=== PATIENT | male | born 1960 ===

== ENCOUNTER → 2020-08-20 09:27 | Outpatient (BNVA) | payer BC, SELFPAY | PROVIDERS: PCP Nurse Practitioner Family; Referring Provider Hospitalist; Visit Provider Internal Medicine Cardiovascular Disease | DX: I49.1 Atrial premature depolarization (principal); R07.9 Chest pain, unspecified | CPT/HCPCS: 93005 ==

== ENCOUNTER 2021-06-06 07:32 | Outpatient (REF) | payer BC, SELFPAY ==
[2021-06-06 11:05] LABS: Alanine Aminotransferase 705 U/L (0-40); Albumin Level 4.4 g/dL (3.5-5.0); Alkaline Phosphatase 96 U/L (39-117); Anion Gap 12 (12-20); Aspartate Amino Transferase 321 U/L (5-37); Blood Urea Nitrogen 18 mg/dL (9-16); Calcium 9.6 mg/dL (8.4-10.2); Carbon Dioxide 30 mmol/L (22-29); Chloride 103 mmol/L (96-108); Cholesterol 174 mg/dL; Estimated Glomerular Filt Rate > 60; Glucose Fasting 101 mg/dL (60-99); HDL Cholesterol 30 mg/dL; LDL Cholesterol Calculated 119 mg/dl; Potassium 4.5 mmol/L (3.3-5.1); Sodium 140 mmol/L (135-145); Total Protein 7.3 g/dL (6.5-8.0); Triglycerides 128 mg/dL
[2021-06-06 11:13] LABS: Prostate Specific Antigen Scr 1.67 ng/mL (<0.05-4.0); TSH reflex Free T4 1.08 uIU/mL (0.32-4.0)
[2021-06-06 11:26] LABS: Appearance Urine CLEAR; Color Urine YELLOW; Glucose Urine UA NEG (NEG); Leukocyte Esterase Urine NEG (NEG); Nitrite Urine NEG (NEG); Specific Gravity - Urine 1.025 (1.005-1.025); UACC Culture Trigger NO; Urine Blood TRACE (NEG); Urine Ketones NEG (NEG); Urine Protein NEG (NEG-TRACE)
[2021-06-06 12:13] LABS: RBC Urine 0-2 /HPF (0); WBC Urine 0 /HPF (0-4)
== END 2021-06-06 07:33 | disposition home or self-care (01) ==
LOC: HO.10HDL 07:32
PROVIDERS: Visit Provider Nurse Practitioner Family
DX: Z00.00 Encounter for general adult medical examination without abnormal findings (principal); Z12.5 Encounter for screening for malignant neoplasm of prostate
CPT/HCPCS: 36415; 80053; 80061; 81001; 81003; 84153; 84443

== ENCOUNTER 2021-06-20 07:48 | Outpatient (REF) | payer BC, SELFPAY ==
[2021-06-20 09:02] LABS: Urine Cytology See Pathology rpt
[2021-06-20 09:06] LABS: Appearance Urine CLEAR; Color Urine YELLOW; Glucose Urine UA NEG (NEG); Leukocyte Esterase Urine NEG (NEG); Nitrite Urine NEG (NEG); PH 5.5 (5.0-8.0); Specific Gravity - Urine >= 1.030 (1.005-1.025); Urine Blood NEG (NEG); Urine Ketones NEG (NEG); Urine Protein NEG (NEG-TRACE)
[2021-06-20 09:08] LABS: Alanine Aminotransferase 523 U/L (0-40); Albumin Level 4.5 g/dL (3.5-5.0); Alkaline Phosphatase 119 U/L (39-117); Aspartate Amino Transferase 149 U/L (5-37); Bilirubin Direct 0.2 mg/dL (0.0-0.5); Bilirubin Total 0.7 mg/dL (0.0-1.0); Total Protein 7.2 g/dL (6.5-8.0)
[2021-06-20 09:28] LABS: HBc Num1 0.04 S/CO (0.00-0.79); Hepatitis B Core Antibody Nonreactive (Nonreactive); ~HepC Num1 0.13 S/CO (0.00-0.79); ~Hepatitis B Surface Antibody NONREACTIVE (Nonreactive); ~Hepatitis C Antibody Nonreactive (Nonreactive)
[2021-06-20 09:35] LABS: HBsAGNum1 0.28 S/CO (0.00-0.99); Hepatitis B Surface Antigen Negative (Negative)
[2021-06-20 10:07] LABS: RBC Urine 0-2 /HPF (0); WBC Urine 0 /HPF (0-4)
[2021-06-21 07:43] LABS: Hepatitis A Antibody IgM 0.43 Index (0-0.79); ~Hepatitis A Antibody IgM Nonreactive (Nonreactive)
== END 2021-06-20 07:49 | disposition home or self-care (01) ==
LOC: HO.LAB 07:48
PROVIDERS: PCP Nurse Practitioner Family; Visit Provider Nurse Practitioner Family
DX: R31.29 Other microscopic hematuria (principal); R74.8 Abnormal levels of other serum enzymes
CPT/HCPCS: 36415; 80076; 81001; 81003; 86704; 86706; 86709; 86803; 87086; 87340; 88112

== ENCOUNTER 2021-06-25 12:01 | Outpatient (REF) | payer BC, SELFPAY ==
[2021-06-25 14:28] LABS: Alanine Aminotransferase 218 U/L (0-40); Albumin Level 4.6 g/dL (3.5-5.0); Alkaline Phosphatase 94 U/L (39-117); Aspartate Amino Transferase 60 U/L (5-37); Bilirubin Direct 0.3 mg/dL (0.0-0.5); Bilirubin Total 0.8 mg/dL (0.0-1.0); Total Protein 7.5 g/dL (6.5-8.0)
== END 2021-06-25 12:02 | disposition home or self-care (01) ==
LOC: HO.HMGCLDS 12:01
PROVIDERS: Visit Provider Nurse Practitioner Family
DX: R74.8 Abnormal levels of other serum enzymes (principal)
CPT/HCPCS: 36415; 80076

== ENCOUNTER 2021-07-01 08:08 | Outpatient (REF) | payer BC, SELFPAY ==
--- NOTE | ~2021-07-01 | US_ITS ---
EXAMINATION: US ABDOMEN COMPLETE CLINICAL INFORMATION: Abnormal levels of other serum enzymes. COMPARISON: None TECHNIQUE: Real-time imaging of the abdominal viscera. FINDINGS: PANCREAS: The head and body the pancreas are normal. The tail is not well visualized due to bowel gas. ABDOMINAL AORTA: The proximal, mid, and distal segments are normal in caliber. INFERIOR VENA CAVA: Visualized portions are normal. LIVER: The liver is normal in size. The liver contour is normal. Liver echotexture may be slightly increased. No focal hepatic lesion. There is no intrahepatic biliary duct dilatation seen. GALLBLADDER: Normal. The gallbladder is physiologically distended without evidence of stones, sludge, polyps, wall thickening or pericholecystic fluid. COMMON BILE DUCT: Normal in caliber measuring 0.3 cm in diameter. RIGHT KIDNEY: Normal. No hydronephrosis. No renal calculi or focal parenchymal lesions. The kidney measures 11.9 cm in maximum dimension. LEFT KIDNEY: There is a 3 mm echogenic density in the midpole with twinkle artifact questionable for a small stone. No hydronephrosis or focal parenchymal lesions. The kidney measures 11.4 cm in maximum dimension. SPLEEN: Normal. The spleen measures 10.0 cm in maximum dimension. FREE FLUID: None. US/US abdomen complete IMPRESSION: Slightly echogenic liver probably representing mild fatty infiltration. Question small left renal stone. Limited visualization of the tail of the pancreas.
== END 2021-07-01 08:09 | disposition home or self-care (01) ==
LOC: HO.HMGCX 08:08
PROVIDERS: PCP Nurse Practitioner Family; Visit Provider Nurse Practitioner Family
DX: R74.8 Abnormal levels of other serum enzymes (principal)
CPT/HCPCS: 76700

== ENCOUNTER 2021-07-02 08:24 | Outpatient (REF) | payer BC, SELFPAY ==
[2021-07-02 11:42] LABS: MANUAL DIFF FLAG NO
[2021-07-02 11:55] LABS: Basophils Percent Auto 0.7 % (0-2); Eosinophils Absolute Auto 0.1 X10*3/uL (0.0-0.4); Eosinophils Percent Auto 1.3 % (0-4); Hematocrit 50.3 % (42.0-52.0); Imm Gran Abs Auto 0.01 X10*3/uL (0.00-0.03); Imm Gran Pct Auto 0.2 % (0.0-0.4); Lymphocytes Absolute Auto 2.1 X10*3/uL (1.2-4.9); Lymphocytes Percent Auto 34.9 % (20-40); Mean Corpuscular HGB Conc 31.8 g/dl (31.0-36.0); Mean Corpuscular Hemoglobin 28.6 pg (27.0-33.0); Mean Corpuscular Volume 89.8 fL (80.0-98.0); Mean Platelet Volume 11.4 fL (9.4-12.4); Monocytes Absolute Auto 0.7 X10*3/uL (0.1-1.2); Monocytes Percent Auto 10.9 % (2-11); Neutrophils Absolute Auto 3.1 x10*3/uL (2.0-8.3); Platelet Count 211 X10*3/uL (160-400); Red Cell Distribution Width 13.7 % (11.0-16.0)
[2021-07-02 12:13] LABS: Alanine Aminotransferase 82 U/L (0-40); Albumin Level 4.3 g/dL (3.5-5.0); Alkaline Phosphatase 90 U/L (39-117); Aspartate Amino Transferase 32 U/L (5-37); Bilirubin Direct 0.3 mg/dL (0.0-0.5); Bilirubin Total 0.7 mg/dL (0.0-1.0); Total Protein 7.2 g/dL (6.5-8.0)
== END 2021-07-02 08:25 | disposition home or self-care (01) ==
LOC: HO.HMGCLDS 08:24
PROVIDERS: PCP Nurse Practitioner Family; Visit Provider Nurse Practitioner Family
DX: R74.8 Abnormal levels of other serum enzymes (principal)
CPT/HCPCS: 36415; 80076; 85025

== ENCOUNTER 2021-08-07 08:36 | Outpatient (REF) | payer BC, SELFPAY ==
[2021-08-07 11:23] LABS: MANUAL DIFF FLAG NO
[2021-08-07 11:31] LABS: Basophils Percent Auto 0.4 % (0-2); Eosinophils Absolute Auto 0.1 X10*3/uL (0.0-0.4); Hematocrit 49.5 % (42.0-52.0); Hemoglobin 16.1 g/dl (14.0-18.0); Imm Gran Abs Auto 0.01 X10*3/uL (0.00-0.03); Imm Gran Pct Auto 0.1 % (0.0-0.4); Lymphocytes Percent Auto 29.3 % (20-40); Mean Corpuscular HGB Conc 32.5 g/dl (31.0-36.0); Mean Corpuscular Volume 89.2 fL (80.0-98.0); Mean Platelet Volume 11.6 fL (9.4-12.4); Monocytes Absolute Auto 0.7 X10*3/uL (0.1-1.2); Monocytes Percent Auto 10.3 % (2-11); Neutrophils Percent Auto 58.9 % (45-73); Platelet Count 195 X10*3/uL (160-400); Red Blood Count 5.55 X10*6/uL (4.60-5.80); Red Cell Distribution Width 13.7 % (11.0-16.0); White Blood Count 6.8 X10*3/uL (4.8-10.8)
[2021-08-07 11:56] LABS: Alanine Aminotransferase 33 U/L (0-40); Albumin Level 4.2 g/dL (3.5-5.0); Alkaline Phosphatase 76 U/L (39-117); Aspartate Amino Transferase 23 U/L (5-37); Bilirubin Direct 0.3 mg/dL (0.0-0.5); Bilirubin Total 0.9 mg/dL (0.0-1.0)
== END 2021-08-07 08:37 | disposition home or self-care (01) ==
LOC: HO.HMGCLDS 08:36
PROVIDERS: PCP Nurse Practitioner Family; Visit Provider Nurse Practitioner Family
DX: R74.8 Abnormal levels of other serum enzymes (principal)
CPT/HCPCS: 36415; 80076; 85025

== ENCOUNTER → 2021-08-15 09:36 | Outpatient (BNVA) | payer BC, SELFPAY | PROVIDERS: PCP Nurse Practitioner Family; Visit Provider Surgery | DX: Z13.89 Encounter for screening for other disorder (principal) ==

== ENCOUNTER 2021-08-28 07:48 | Day surgery (SDC) | payer BC, SELFPAY ==
[2021-08-21 20:03] VITALS: BMI 25.8
--- NOTE | 2021-08-27 11:42 | HO.ANESPROP2 ---
Documented by User: Kenia Wright NP 08/27/21 11:44 HPI - Anesthesia Eval Consult details Narrative: 60yo M for Right Excision Breast Mass PMFSH Active Problems Active Problems: All Active Problems (Updated 08/21/21 @ 20:02 by Lula Callaway RN) PAC (premature atrial contraction) (Acute) Chest pain (Acute) Physical exam (Acute) Screening PSA (prostate specific antigen) (Acute) Microscopic hematuria (Acute) Elevated liver enzymes (Acute) High cholesterol (Acute) Breast mass, right (Acute) Past Medical History Medical History Gynecomastia Hx of traumatic subdural hematoma Hyperlipidemia Family History Family History Father No problems noted. Mother HTN (hypertension) Surgical History Surgical History History of breast lump/mass excision Status post emergency tracheotomy for assistance in breathing Social History Social History Patient Tobacco Use Status: Never used Tobacco e-Cigarette/Vaping Use: Never Used Second Hand Smoke Exposure: No Use of substances other than those prescribed or required for medical reasons: Yes Substance Use Frequency: Monthly Are you DNR?: No Advance Directives: No Advance Directives Information Provided: Yes Recently lost weight without trying: No Nutrition Risks: No Nutritional Risk Meds Allergies Allergy/AdvReac Type Severity Reaction Status Date / Time No Known Allergies Allergy Verified 08/28/21 08:04 Exam Exam Date and Time: August 27, 2021 1142 Height,Weight and Vital Signs: Height 5 ft 8 in Weight 77.111 kg Pertinent Lab Results Pertinent Lab Results: Laboratory Tests 06/06/21 08/07/21 07:40 08:41 WBC 6.8 Hgb 16.1 Hct 49.5 Plt Count 195 Sodium 140 Potassium 4.5 Chloride 103 Carbon Dioxide 30 H BUN 18 H Creatinine 0.89 Narrative Narrative: EKG 08/2020 Sinus bradycardia 59/min, normal axis, incomplete RBBB, QTc 386 msec Per 08/2020 cardiac note Exercise stress test where on good functional capacity he did not develop any symptoms or ischemic EKG changes. He also had an echocardiogram which is normal. Assessment and Plan Assessment Anesthesia Assessment: Chart Reviewed Documented by User: Saundra Sanchez MD 08/28/21 11:24 HPI - Anesthesia Eval Consult details Narrative: 60yo M for Excision of Right Breast Mass PMFSH Active Problems Active Problems: All Active Problems (Updated 08/21/21 @ 20:02 by Lula Callaway RN) PAC (premature atrial contraction) (Acute) Chest pain (Acute) Physical exam (Acute) Screening PSA (prostate specific antigen) (Acute) Microscopic hematuria (Acute) Elevated liver enzymes (Acute) High cholesterol (Acute) Breast mass, right (Acute) Majiuana use - last yesterday Past Medical History Medical History Gynecomastia Hx of traumatic subdural hematoma Hyperlipidemia Family History Family History Father No problems noted. Mother HTN (hypertension) Family history of problems with anesthesia: No Surgical History Surgical History History of breast lump/mass excision Status post emergency tracheotomy for assistance in breathing History of Problems with Anesthesia: No Social History Social History Patient Tobacco Use Status: Never used Tobacco e-Cigarette/Vaping Use: Never Used Second Hand Smoke Exposure: No Use of substances other than those prescribed or required for medical reasons: Yes Substance Use Frequency: Monthly Are you DNR?: No Advance Directives: No Advance Directives Information Provided: Yes Recently lost weight without trying: No Nutrition Risks: No Nutritional Risk Meds Allergies Allergy/AdvReac Type Severity Reaction Status Date / Time No Known Allergies Allergy Verified 08/28/21 08:04 Exam Height,Weight and Vital Signs: Height 5 ft 8 in Weight 77.111 kg Vital Signs Temp Pulse Resp BP Pulse Ox 08/28/21 08:44 97.9 F 69 16 127/82 98 Airway Mallampati Class: II TM Dist: >3cm Neck ROM: Full Loose/Missing/Broken Teeth: No Heart: RRR Lungs: CTAB Assessment and Plan Assessment Anesthesia Assessment: Anesthesia Plan Discussed Final Anesthetic Review Family History of Problems with Anesthesia: No History of Problems with Anesthesia: No NPO: Yes ASA Class: II Final Preanesthetic Review: No Changes in Pt Med Stat, Meds/Allgs Chart Reviewed, Consent Obtained/Reviewed and Anes Risks/Benef Reviewed Patient Risk: Low Procedure Risk: Low Assessment/Block/Sedation in SS: Assess/Block/Sedation-SS Anesthetic Plan Anesthetic Plan: GA Disposition: Standard PACU
[2021-08-28] VITALS (8 sets, daily range): BP systolic 120–130; BP diastolic 69–82; PULSE 59–73; RESP 16–18; TEMP 36.4–36.6; O2SAT 95–100
[2021-08-28] MEDS: Lactated Ringers 1,000 ML 100 ML IVCONT (08:46)
--- NOTE | 2021-08-28 10:41 | MHC.SHP ---
Pre-Procedural Eval Section A Date of Service: 08/28/21 The patient is an INPATIENT: No Changes since office visit: Yes Patient answered all questions; No Cold of Flu in the past 2 weeks, No New Medical Problems and No Changes in Medication The History & Physical has been completed within 30 days and I have reviewed it.: Yes Section B Chief Complaint: breast mass Allergies: Allergies Allergy/AdvReac Type Severity Reaction Status Date / Time No Known Allergies Allergy Verified 08/28/21 08:04 Plan Diagnosis/Plan: Unchanged I have reviewed the history and physical and performed a pertinent physical examination on my patient. No changes have occurred unless specified.
--- NOTE | 2021-08-28 11:44 | W.PM.OPN ---
Operative Note Operative Note Date of Service: 08/28/21 Narrative: Preoperative diagnosis: Right breast mass Postoperative diagnosis:same Procedure: Right breast lumpectomy Surgeon: Agustín Morton MD [employer] Attendant: Katlin Aldrich PA-C Anesthesia:General LMA Indications for procedure: 60 year old male presenting with a palpable painful lump in the right breast located with the upper portion of the nipple/areola. Operative findings:Palpable mass, right breast, below nipple Specimen:Right breast mass Estimated blood loss:5 mls Complications:none Procedure details: Patient was brought to the OR and placed in a supine position. After administering general anesthesia patient's right breast was prepped with ChloraPrep draped in a sterile fashion. A surgical time-out was called and consent confirmed. Patient received preoperative antibiotics and Venodyne boots were in place. Local anesthesia consisting of 0.25% Sensorcaine was infiltrated around the nipple-areolar complex. A curvilinear incision was made to the lateral portion of the nipple areola. This was carried out through subcutaneous tissue. Superior inferior skin flaps were then created. Dissection was continued below the nipple to include the nipple ducts. Dissection was continued more medial below the nipple-areolar complex. Core of tissue was then dissected down to the chest wall again using electrocautery. Palpable mass was circumferentially removed and sent to pathology for further examination. Adequate hemostasis was assured using electrocautery. The breast tissue was then reapproximated using interrupted 3-0 Polysorb sutures. Dermis was then closed using interrupted 3-0 Polysorb sutures. Skin was closed using a running subcuticular 4-0 Polysorb suture. Steri-Strips, 2 x 2 gauze and Tegaderm were then applied. The patient tolerated the procedure well. Sponge, instrument, and needle counts reported as correct. The patient was transferred to PACU in stable condition.
[2021-08-28] MEDS: Acetaminophen 325 MG TABLET 650 MG PO (12:55)
== END 2021-08-28 13:21 | disposition home or self-care (01) ==
PROVIDERS: PCP Nurse Practitioner Family; Visit Provider Surgery
PROC: (CPT 19301; principal; 2021-08-28 09:40)
DX: N63.10 Unspecified lump in the right breast, unspecified quadrant (principal); N62 Hypertrophy of breast; E78.5 Hyperlipidemia, unspecified; Z79.899 Other long term (current) drug therapy; Z98.890 Other specified postprocedural states
CPT/HCPCS: 19301; 88305; 88307; J0690; J2250; J2405; J3010

== ENCOUNTER → 2021-09-06 11:05 | Outpatient (BNVA) | payer BC, SELFPAY | PROVIDERS: PCP Nurse Practitioner Family; Referring Provider Nurse Practitioner Family; Visit Provider Surgery | DX: Z13.89 Encounter for screening for other disorder (principal) ==

== ENCOUNTER 2022-01-21 09:58 | Outpatient (REF) | payer BC, SELFPAY ==
[2022-01-21 11:25] LABS: MANUAL DIFF FLAG NO
[2022-01-21 11:36] LABS: Basophils Percent Auto 0.5 % (0-2); Eosinophils Absolute Auto 0.1 X10*3/uL (0.0-0.4); Eosinophils Percent Auto 1.3 % (0-4); Hematocrit 47.5 % (42.0-52.0); Hemoglobin 15.4 g/dl (14.0-18.0); Imm Gran Abs Auto 0.01 X10*3/uL (0.00-0.03); Imm Gran Pct Auto 0.2 % (0.0-0.4); Lymphocytes Absolute Auto 2.1 X10*3/uL (1.2-4.9); Lymphocytes Percent Auto 33.8 % (20-40); Mean Corpuscular HGB Conc 32.4 g/dl (31.0-36.0); Mean Corpuscular Hemoglobin 28.4 pg (27.0-33.0); Mean Corpuscular Volume 87.5 fL (80.0-98.0); Mean Platelet Volume 11.2 fL (9.4-12.4); Monocytes Absolute Auto 0.6 X10*3/uL (0.1-1.2); Monocytes Percent Auto 10.2 % (2-11); Neutrophils Absolute Auto 3.4 x10*3/uL (2.0-8.3); Platelet Count 186 X10*3/uL (160-400); Red Blood Count 5.43 X10*6/uL (4.60-5.80); Red Cell Distribution Width 12.8 % (11.0-16.0); White Blood Count 6.3 X10*3/uL (4.8-10.8)
[2022-01-21 12:21] LABS: Alanine Aminotransferase 25 U/L (0-40); Albumin Level 4.6 g/dL (3.5-5.0); Alkaline Phosphatase 85 U/L (39-117); Anion Gap 16 (12-20); Aspartate Amino Transferase 21 U/L (5-37); Bilirubin Total 0.8 mg/dL (0.0-1.0); Blood Urea Nitrogen 14 mg/dL (9-16); Calcium 9.7 mg/dL (8.4-10.2); Carbon Dioxide 27 mmol/L (22-29); Chloride 102 mmol/L (96-108); Cholesterol 133 mg/dL; Estimated Glomerular Filt Rate > 60; Glucose Fasting 112 mg/dL (60-99); HDL Cholesterol 30 mg/dL; LDL Cholesterol Calculated 86 mg/dl; Potassium 4.3 mmol/L (3.3-5.1); Sodium 141 mmol/L (135-145); Total Protein 7.3 g/dL (6.5-8.0); Triglycerides 87 mg/dL
[2022-01-21 12:23] LABS: TSH reflex Free T4 0.68 uIU/mL (0.32-4.0)
== END 2022-01-21 09:59 | disposition home or self-care (01) ==
LOC: HO.HMGCLDS 09:58
PROVIDERS: PCP Nurse Practitioner Family; Visit Provider Nurse Practitioner Family
DX: R74.8 Abnormal levels of other serum enzymes (principal); E78.00 Pure hypercholesterolemia, unspecified
CPT/HCPCS: 36415; 80053; 80061; 84443; 85025

== ENCOUNTER 2022-01-27 09:35 | Outpatient (REF) | payer BC, SELFPAY ==
--- NOTE | ~2022-01-27 | XR_ITS ---
EXAMINATION: XR HIP, RIGHT XR HIP, LEFT CLINICAL INFORMATION: Pain. COMPARISON: None TECHNIQUE: Two views of each hip. FINDINGS: RIGHT HIP: Bone alignment is normal. There is mild arthritis with joint space narrowing and small superolateral acetabular osteophyte. Soft tissues are normal. LEFT HIP: Bone alignment is normal. No fracture or dislocation is seen. There is increased coverage of the superolateral femoral head suggestive of CAM deformity. There is mild arthritis at the left hip joint with joint space narrowing and osteophyte formation. Soft tissues are normal. XR/XR hip LT min 2V IMPRESSION: Mild bilateral hip arthritis. Question CAM deformity of the left hip.
--- NOTE | ~2022-01-27 | XR_ITS ---
EXAMINATION: XR HIP, RIGHT XR HIP, LEFT CLINICAL INFORMATION: Pain. COMPARISON: None TECHNIQUE: Two views of each hip. FINDINGS: RIGHT HIP: Bone alignment is normal. There is mild arthritis with joint space narrowing and small superolateral acetabular osteophyte. Soft tissues are normal. LEFT HIP: Bone alignment is normal. No fracture or dislocation is seen. There is increased coverage of the superolateral femoral head suggestive of CAM deformity. There is mild arthritis at the left hip joint with joint space narrowing and osteophyte formation. Soft tissues are normal. XR/XR hip RT min 2V IMPRESSION: Mild bilateral hip arthritis. Question CAM deformity of the left hip.
== END 2022-01-27 09:36 | disposition home or self-care (01) ==
LOC: HO.HMGCX 09:35
PROVIDERS: PCP Nurse Practitioner Family; Visit Provider Nurse Practitioner Family
DX: M25.551 Pain in right hip (principal); M25.552 Pain in left hip
CPT/HCPCS: 73502

== ENCOUNTER → 2022-04-24 14:53 | Outpatient (BNVA) | payer BC, SELFPAY | PROVIDERS: PCP Nurse Practitioner Family; Visit Provider Surgery | DX: Z13.89 Encounter for screening for other disorder (principal) ==

== ENCOUNTER 2022-04-30 07:58 | Outpatient (REF) | payer BC, SELFPAY ==
--- NOTE | ~2022-04-30 | CT_ITS ---
EXAMINATION: CT ABDOMEN AND PELVIS WITHOUT CONTRAST CLINICAL INFORMATION: Ventral hernia without obstruction or gangrene. COMPARISON: None. TECHNIQUE: Multidetector volumetric imaging was performed from the superior aspect of the liver through the pubic symphysis. Sagittal and coronal reformatted images were obtained on the technologist's workstation. This CT examination was performed using dose optimization techniques as appropriate, variously including the following: *Automated exposure control *Adjustment of mA and/or kV according to patient size (this includes techniques or standardized protocols for targeted exams where dose is matched to indication/reason for exam; i.e. extremities or head) *Use of iterative reconstruction technique DLP: 423 mGy-cm. FINDINGS: LUNG BASES: There is a 3 mm nodule left lung base and tumor nodule right lung base. LIVER, GALLBLADDER, AND BILIARY TREE: The liver is normal in size, shape, and attenuation. No focal hepatic lesion or biliary ductal dilatation is present. The gallbladder is unremarkable with no evidence of radiopaque gallstones, gallbladder wall thickening, or obvious pericholecystic inflammatory changes. PANCREAS: Unremarkable. SPLEEN: Unremarkable. ADRENAL GLANDS: Unremarkable. KIDNEYS AND URETERS: The kidneys are normal in size, shape, and attenuation. No hydronephrosis, hydroureter, or calculi seen. No perinephric stranding. BLADDER: Unremarkable. GASTROINTESTINAL TRACT: There is scattered stool, diverticuli and gas seen throughout the colon without significant distention. Oral contrast opacified small bowel loops are normal caliber. No free air or free fluid seen. ABDOMINAL WALL: There is a small umbilical hernia containing fat. LYMPH NODES: Normal. VASCULAR: Unremarkable. PELVIC VISCERA: Unremarkable. OSSEOUS STRUCTURES: There is vacuum disc phenomena with degenerative disc changes and ventral and posterior spondylosis. No aggressive lytic or sclerotic process seen. CT/CT abdomen pelvis wo IV con IMPRESSION: 1. No acute intra-abdominal process seen. 2. Colonic diverticulosis without diverticulitis. 3. Small umbilical hernia containing fat. Fleischner guidelines were followed.
[2022-04-30] MEDS: Barium Sulfate Oral (Berry) 450 ML ORAL.SUSP 900 ML PO (10:19)
== END 2022-04-30 07:59 | disposition home or self-care (01) ==
LOC: HO.CT 07:58
PROVIDERS: PCP Nurse Practitioner Family; Visit Provider Surgery
DX: K43.9 Ventral hernia without obstruction or gangrene (principal)
CPT/HCPCS: 74176

== ENCOUNTER 2022-12-08 10:26 | Outpatient (AMB) | payer BC, SELFPAY ==
[2022-12-08 10:35] VITALS: BP 122/82; PULSE 63; BMI 25.5
--- NOTE | 2022-12-08 10:35 | MHC.OFFVIS ---
Intake Vital Signs 12/08/22 10:35 Height 5 ft 8 in Weight 167 lb 15.876 oz BMI 25.5 BP 122/82 Blood Pressure Location Lt brachial Position Sitting Pulse 63 Pulse Source Monitor Intake Visit Reasons: 1 year follow up Intake Note: 1 year follow up with EKG. Hide And Skin Classer Required: No Accompanied by: Self / Same As Patient Allergies No Known Allergies Allergy (Verified 12/08/22 10:37) Medication List - Last Reconciled 12/08/22 by Lawrence York MD rosuvastatin 10 mg PO BEDTIME 90 days HPI HPI Comments History of Present Illness Details 62-year-old gentleman with palpitations and premature atrial complexes. Was originally in 2020 He underwent cardiac event monitor which did not show any significant arrhythmia or premature atrial complexes. He had chest discomfort for which he was sent for exercise stress test where on good functional capacity he did not develop any symptoms or ischemic EKG changes. He also had an echocardiogram which is normal. He is saying he has been active and has no symptoms when he is exercising. He returns for follow-up today. He continues to have some palpitations off and on. These are significantly decreased compared to before. He has cut back on his caffeine intake. He also has some dull ache in his chest when he is laying down on the left side at nighttime. During the day when he is active he has no symptoms. He bikes and does exercise with light weights without any symptoms. 12/08/22: He returns for follow-up. He has some complaints of palpitations. He can feel is heartbeat and occasionally feels a strong heartbeat laying down. 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 Recently has not been as active as he was previously. Denying any chest discomfort or significant shortness of breath. Blood pressure in the office currently is normal. He has hyperlipidemia and is taking rosuvastatin 10 mg at bedtime. [facility] Medical History Gynecomastia Hx of traumatic subdural hematoma Hyperlipidemia Surgical History History of breast lump/mass excision S/P lumpectomy, right breast (08/28/21) Status post emergency tracheotomy for assistance in breathing Family History Father No problems noted. Mother HTN (hypertension) Social History Housing: House Patient Tobacco Use Status: Never used Tobacco e-Cigarette/Vaping Use: Never Used Second Hand Smoke Exposure: No service: Yes Current occupational status: employed Current occupation: [employer] Current occupational exposures/hazards: No Cognitive needs: No Hearing needs: No Vision needs: No Review of Systems Const Denies weakness ENT Denies dizziness Card Denies chest pain, Denies chest pain with activity, Denies syncope, Denies rapid heart rate, Denies pedal edema, Denies edema, Denies leg edema, Denies lightheadedness, Denies palpitations, Denies dyspnea, Denies dyspnea on exertion and Denies orthopnea Resp Denies cough, Denies dyspnea and Denies dyspnea on exertion GI Denies hematochezia and Denies change in stool character Musc Denies abnormal gait, Denies muscle cramps, Denies muscle weakness, Denies numbness, Denies radiating pain into limb and Denies tingling Neuro Denies abnormal gait, Denies dizziness, Denies syncope, Denies numbness, Denies tingling and Denies weakness Endo Denies palpitations Physical Exam Vital Signs: Last Vital Signs Pulse 63 12/08/22 10:35 BP 122/82 12/08/22 10:35 BMI result Body Mass Index 25.5 GENERAL APPEARANCE: in no acute distress, pleasant. NECK/THYROID: no carotid bruit, no jugular venous distention. SKIN: no suspicious lesions, warm and dry. HEART: no murmurs, regular rate and rhythm. LUNGS: clear to auscultation bilaterally. ABDOMEN: soft, nontender. EXTREMITIES: no edema. PERIPHERAL PULSES: equal. NEUROLOGIC: No gross deficits, AAO X 3 Office Procedures EKG Details: Sinus rhythm 63 beats per minute, normal axis, incomplete right bundle-branch block, QTC 395 milliseconds. [id number], Complete Assessment & Plan Assessment & Plan (1) PAC (premature atrial contraction): Code(s): I49.1 - Atrial premature depolarization (2) Palpitations: Code(s): R00.2 - Palpitations Plan 62-year-old gentleman who is here for follow-up. Previously had stress testing, Holter monitoring and echocardiogram performed in 2020 which were normal. He is complaining of some palpitations off and on. We previously saw premature atrial complexes on his monitoring which could be potential cause for these symptoms. Also he drinks coffee during the day which could stimulate more atrial arrhythmia. He has not been as active as he was previously. I have advised him to start exercising regularly. If he has any exertional symptoms then we can consider further testing on him. Otherwise if with exercise he progresses and does not develop any significant shortness of breath, chest discomfort or palpitations then I think no further workup is required. Thank you for allowing me to participate in the care of your patient. Please feel free to contact me if you have any questions. Coding Level of Care Code Est Pt Level 4 (79285) Diagnoses PAC (premature atrial contraction) I49.1 Palpitations R00.2 CPT Codes EKG - CPT: 85605-[id number], Complete ([id number])
== END 2022-12-08 11:19 | disposition home or self-care (01) ==
PROVIDERS: PCP Nurse Practitioner Family; Referring Provider Nurse Practitioner Family; Visit Provider Internal Medicine Cardiovascular Disease
DX: I49.1 Atrial premature depolarization (principal); R00.2 Palpitations
CPT/HCPCS: 93010; 99214

== ENCOUNTER → 2022-12-08 10:26 | Outpatient (BNVA) | payer BC, SELFPAY | PROVIDERS: PCP Nurse Practitioner Family; Referring Provider Nurse Practitioner Family; Visit Provider Internal Medicine Cardiovascular Disease | DX: I49.1 Atrial premature depolarization (principal); R00.2 Palpitations; E78.5 Hyperlipidemia, unspecified; Z79.899 Other long term (current) drug therapy | CPT/HCPCS: 93005 ==

== ENCOUNTER 2023-09-04 07:16 | Outpatient (REF) | payer BC, SELFPAY ==
[2023-09-04 07:25] LABS: MANUAL DIFF FLAG NO
[2023-09-04 08:02] LABS: Basophils Absolute Auto 0.1 X10*3/uL (0.0-0.2); Basophils Percent Auto 0.7 % (0-2); Eosinophils Absolute Auto 0.1 X10*3/uL (0.0-0.4); Eosinophils Percent Auto 1.6 % (0-4); Hematocrit 49.9 % (42.0-52.0); Hemoglobin 16.4 g/dl (14.0-18.0); Imm Gran Abs Auto 0.02 X10*3/uL (0.00-0.03); Imm Gran Pct Auto 0.3 % (0.0-0.4); Lymphocytes Absolute Auto 2.7 X10*3/uL (1.2-4.9); Lymphocytes Percent Auto 36.9 % (20-40); Mean Corpuscular HGB Conc 32.9 g/dl (31.0-36.0); Mean Corpuscular Hemoglobin 28.7 pg (27.0-33.0); Mean Corpuscular Volume 87.2 fL (80.0-98.0); Monocytes Absolute Auto 0.7 X10*3/uL (0.1-1.2); Monocytes Percent Auto 9.9 % (2-11); Neutrophils Absolute Auto 3.7 x10*3/uL (2.0-8.3); Neutrophils Percent Auto 50.6 % (45-73); Platelet Count 214 X10*3/uL (160-400); Red Blood Count 5.72 X10*6/uL (4.60-5.80); White Blood Count 7.3 X10*3/uL (4.8-10.8)
[2023-09-04 08:41] LABS: Appearance Urine Cloudy; Color Urine Yellow; Glucose Urine UA Negative (Negative); Leukocyte Esterase Urine Negative (Negative); Nitrite Urine Negative (Negative); PH 5.5 (5.0-9.0); Specific Gravity - Urine 1.015 (1.005-1.025); Urine Blood Negative (Negative); Urine Ketones Negative (Negative); Urine Protein Negative (Neg-Trace)
[2023-09-04 08:49] LABS: Alanine Aminotransferase 20 U/L (0-40); Albumin Level 4.5 g/dL (3.5-5.0); Alkaline Phosphatase 90 U/L (39-117); Anion Gap 14 (12-20); Aspartate Amino Transferase 17 U/L (5-37); Bilirubin Total 0.6 mg/dL (0.0-1.0); Blood Urea Nitrogen 18 mg/dL (9-16); Calcium 9.8 mg/dL (8.4-10.2); Carbon Dioxide 29 mmol/L (22-29); Chloride 104 mmol/L (96-108); Cholesterol 139 mg/dL (<200); Estimated Glomerular Filt Rate > 60; Glucose Fasting 110 mg/dL (60-99); HDL Cholesterol 31 mg/dL (>40); LDL Cholesterol Calculated 89 mg/dL (<100); Potassium 4.1 mmol/L (3.3-5.1); Sodium 143 mmol/L (135-145); Total Protein 7.6 g/dL (6.5-8.0); Triglycerides 99 mg/dL (<150)
[2023-09-04 08:56] LABS: Prostate Specific Antigen Scr 1.32 ng/mL (<0.05-4.0)
[2023-09-04 09:08] LABS: TSH reflex Free T4 1.78 uIU/mL (0.32-4.0); Vitamin D 25-OH Total 40.7 ng/mL (>30)
== END 2023-09-04 07:17 | disposition home or self-care (01) ==
LOC: HO.LAB 07:16
PROVIDERS: PCP Nurse Practitioner Family; Visit Provider Nurse Practitioner Family
DX: Z00.00 Encounter for general adult medical examination without abnormal findings (principal); Z12.5 Encounter for screening for malignant neoplasm of prostate
CPT/HCPCS: 36415; 80053; 80061; 81003; 82306; 84153; 84443; 85025

== ENCOUNTER 2023-09-08 13:41 | Outpatient (AMB) | payer BC, SELFPAY ==
--- NOTE | 2023-09-08 13:58 | MHC.PC.OV ---
Vital Signs 09/08/23 14:00 Height 5 ft 8 in Weight 166 lb BMI 25.2 BP 120/82 Blood Pressure Location Rt brachial Position Sitting Pulse 72 Pulse Source Pulse Oximeter Pulse Oximetry (%) 96 Oxygen Delivery Method Room Air Intake Visit Reasons: Annual Physical Intake Note: Patient here for physical exam. Allergies No Known Allergies Allergy (Verified 09/08/23 14:40) Medication List - Last Reconciled 09/08/23 by DARIO Hoff rosuvastatin 10 mg PO BEDTIME 90 days Tobacco use date assessed: 09/08/23 Dental Screening Dental Screen Date: 09/08/23 Did you have a dental visit in the last 12 months?: No Did you have a dental problem in the last 6 months where you did not have access to dental care?: No Was dental information given to patient?: Patient has dentist HPI Annual Physical HPI Details Pt is here for a PE. Labs were already performed. Due for colon screen, will refer to GI. PSA is up to date. Pt does report dribbling with urination, weak stream, and incomplete bladder emptying. Will refer to urology, refused MITCHELL today. Pt has a right upper eyelid lesions which has been frozen off by dermatology 3 times. This lesion continues to reappear. It was recommended by derm that pt be referred to a plastic surgeon/ophthalmology. Will place referral. Pt's fasting blood sugar was elevated. Educated pt on proper diet including limiting bad carbs and sugars. [facility] Medical History Hyperlipidemia Hx of traumatic subdural hematoma Gynecomastia Surgical History S/P lumpectomy, right breast (08/28/21) History of breast lump/mass excision Status post emergency tracheotomy for assistance in breathing Family History Father No problems noted. Mother HTN (hypertension) Social History Housing: House Patient Tobacco Use Status: Never used Tobacco e-Cigarette/Vaping Use: Never Used Second Hand Smoke Exposure: No service: Yes Current occupational status: employed Current occupation: [employer] Current occupational exposures/hazards: No Cognitive needs: No Hearing needs: No Vision needs: No Questionnaire PHQ-9 Over the last 2 weeks, how often have you been bothered by any of the following problems? 36510 - PHQ-9 Billing: Patient declined-do not bill Source: Developed by Drs. Joaquin Guzman, Home Dasilva and colleagues, with an educational radha from [employer]. Thrive Questionnaire Date Thrive assessed: 09/08/23 I am a: Patient What is your living situation today?: I choose not to answer this question Within the past 12 months, did the food you bought not last and you didn't have the money to get more?: I choose not to answer this question Within the past 12 months, did you worry whether your food would run out before you got money to buy more?: I choose not to answer this question Do you have trouble paying for medicines?: I choose not to answer this question Do you have trouble getting transportation to medical appointments?: I choose not to answer this question Do you have trouble paying your heating and electricity bill?: I choose not to answer this question Do you have trouble taking care of your child, family member or friend?: I choose not to answer this question Do you have trouble with day-to-day activities such as bathing, preparing meals, shopping, managing finances, etc.?: I choose not to answer this question Are you currently unemployed and looking for a job?: I choose not to answer this question Are you interested in more education?: I choose not to answer this question Currently or been in a relationship where the following occur: I choose not to answer this question THRIVE Score: 0 AUDIT C Alcohol Use Questionnaire (AUDIT-C) 1. How often do you have a drink containing alcohol?: Monthly or less 2. How many drinks containing alcohol do you have on a typical day when you are drinking?: 1 or 2 3. How often do you have six or more drinks on one occasion?: Never Total Score: 1 Score Reviewed/Action Taken: No KARINA-7 AMB Questionnaire KARINA-7 Date AKRINA - 7 assessed: 09/08/23 Source: Developed by Sarah Fish Kurt Kroenke and colleagues, with an educational radha from [employer]. KARINA-7 Assessment Billing KARINA-7 Assessment Tool: pt declined-do not bill Review of Systems Const Denies chills and Denies fever(s) Eyes Denies blurry vision ENT Denies vertigo, Denies dizziness and Denies sore throat Card Denies chest pain at rest, Denies chest pain with activity, Denies diaphoresis, Denies dyspnea and Denies dyspnea on exertion Resp Denies cough, Denies dyspnea, Denies dyspnea on exertion and Denies wheezing GI Denies abdominal pain, Denies melena, Denies hematochezia, Denies constipation, Denies diarrhea and Denies loose stools Denies hematuria Musc Denies numbness and Denies tingling Skin/Breast Denies lesions Neuro Denies vertigo, Denies dizziness, Denies numbness and Denies tingling Psych Denies anxiety, Denies depression, Denies homicidal ideation, Denies suicidal ideation and Denies other (substance abuse) Aller/Immun Denies wheezing Physical exam (Primary Care) Vital Signs: Last Vital Signs Pulse 72 09/08/23 14:00 BP 120/82 09/08/23 14:00 Pulse Ox 96 09/08/23 14:00 Oxygen Delivery Method Room Air 09/08/23 14:00 BMI result Body Mass Index 25.2 Tobacco/Smoking Status: Tobacco use Status Tobacco use date assessed 09/08/23 09/08/23 14:04 Patient Tobacco Use Status Never used Tobacco 09/08/23 14:00 e-Cigarette/Vaping Use Never Used 09/08/23 14:00 Currently or been in a relationship where the following occur: I choose not to answer this question Const General: cooperative Nutritional Appearance: well nourished Orientation/consciousness: patient oriented x3 HENMT Head: Yes normal to inspection, Yes normocephalic and Yes atraumatic Ears: TM's normal bilaterally Eyes General: appearance normal, both eyes and all related structures Alignment and Position: alignment normal and position normal Eyes/upper lids images: 1. lesion 2. lesion 3. small lesion Neck Neck: Yes normal visual inspection and Yes no lymphadenopathy Thyroid: Thyroid normal Resp Effort & Inspection: normal respiratory effort Auscultation: clear to auscultation bilaterally Cardio Rate: regular rate Rhythm: regular rhythm Heart sounds: S1 normal heart sound present, S2 normal heart sound present and no murmurs GI Palpation (GI): Soft to palpation and nontender Auscultation: normal bowel sounds Male General Exam: Yes normal external exam Penis: normal penis Scrotum: scrotum normal, testes descended bilaterally and no inguinal hernias Testes: no testicular mass Skin Other: several macular/papular lesions, range in colors (appears as SK), upper torsos (especially back), also noted to extremities Rashes: no rashes Neuro General: patient oriented x3, moves all extremities, no focal motor deficits and deep tendon reflexes 2+ bilaterally Romberg Test: Negative Psych Appearance: grossly normal Mental Status: mental status grossly normal Speech and movement: Normal speech and movement present Affect: normal affect Attitude: cooperative Thought process: Normal thought process present Thought content: Normal thought content present Insight: Good insight present (Psych) Judgement: Good judgement present (Psych) Assessment and Plan Assessment & Plan (1) Eyelid lesion: Code(s): H02.9 - Unspecified disorder of eyelid Plan: Referred to plastic surgery (2) Screening for colon cancer: Code(s): Z12.11 - Encounter for screening for malignant neoplasm of colon Plan: Referred to GI (3) Weak urinary stream: Code(s): R39.12 - Poor urinary stream Plan: referring to urology (4) Elevated fasting blood sugar: Code(s): R73.01 - Impaired fasting glucose Plan: watch bad carbs and sugars (5) Skin lesions: Code(s): L98.9 - Disorder of the skin and subcutaneous tissue, unspecified Plan: Referred to derm Plan The patient agreed to the use of a director medical writing for this encounter. Scribed for DULCE Jordan by rodrick Loredo scribe, on 09/08/2023 at 14:20 EST. Orders: Referrals Urology Referral R39.12 - Poor urinary stream Dermatology Referral L98.9 - Disorder of the skin and subcutaneous tissue, unspecified Plastic Surgery Referral H02.9 - Unspecified disorder of eyelid Gastroenterology Referral Z12.11 - Encounter for screening for malignant neoplasm of colon Coding Level of Care Code Est Pt Prev Care 40-64y(68632) Diagnoses Eyelid lesion H02.9 Screening for colon cancer Z12.11 Weak urinary stream R39.12 Elevated fasting blood sugar R73.01 Skin lesions L98.9
[2023-09-08 14:00] VITALS: BP 120/82; PULSE 72; O2SAT 96; BMI 25.2
== END 2023-09-08 15:25 | disposition home or self-care (01) ==
PROVIDERS: PCP Nurse Practitioner Family; Visit Provider Nurse Practitioner Family
DX: Z00.00 Encounter for general adult medical examination without abnormal findings (principal); H02.9 Unspecified disorder of eyelid; Z12.11 Encounter for screening for malignant neoplasm of colon; R39.12 Poor urinary stream; R73.01 Impaired fasting glucose; L98.9 Disorder of the skin and subcutaneous tissue, unspecified
CPT/HCPCS: 99396

== ENCOUNTER 2023-11-16 14:44 | Outpatient (AMB) | payer BC, SELFPAY ==
--- NOTE | 2023-11-16 14:50 | MHC.OFFVIS ---
Intake Visit Reasons: Incomplete emptying,weak stream/PSA Intake Note: Patient is present for INCOMPLETE EMPTYING,WEAK STREAM/PSA Urology Medication:NONE Antibiotic Allergy:NONE Blood Thinner:NONE Front Worker Required: No Allergies No Known Allergies Allergy (Verified 11/16/23 14:51) HPI Comments Details: Dejon is a 63-year-old male who is here as a new patient evaluation for complaints of weak stream. He states he feels that he is not emptying completely when he urinates. He denies dysuria. Review of labs PSA-09/04/2023 is 1.32 ng/mL. Discussed evaluate further with ultrasound kidneys/bladder. [facility] Medical History Hyperlipidemia Hx of traumatic subdural hematoma Gynecomastia Surgical History S/P lumpectomy, right breast (08/28/21) History of breast lump/mass excision Status post emergency tracheotomy for assistance in breathing Family History Father No problems noted. Mother HTN (hypertension) Social History Housing: House Patient Tobacco Use Status: Never used Tobacco e-Cigarette/Vaping Use: Never Used Second Hand Smoke Exposure: No service: Yes Current occupational status: employed Current occupation: [employer] Current occupational exposures/hazards: No Cognitive needs: No Hearing needs: No Vision needs: No Review of Systems Const All systems reviewed & are unremarkable except as noted in HPI and below Reports no additional complaints Eyes Reports no additional complaints ENT Reports no additional complaints Card Reports no additional complaints Resp Reports no additional complaints GI Reports no additional complaints Reports as per HPI Musc Reports no additional complaints Skin/Breast Reports system reviewed and no additional complaints, except as documented Neuro Reports no additional complaints Psych Reports no additional complaints Endo Reports no additional complaints Dimitris/Lymph Reports no additional complaints Aller/Immun Reports no additional complaints Physical Exam Const General: healthy appearing, no acute distress and well developed Orientation/consciousness: patient oriented x3 HEENT Head: Yes normocephalic and Yes atraumatic Eyes Conjunctivae: conjunctivae normal Neck Neck: Yes normal visual inspection Chest Chest palpation & inspection: normal inspection of the chest Resp Effort & Inspection: normal respiratory effort Cardio Jugular venous distension: no JVD GI Inspection: Yes normal to inspection Palpation (GI): Soft to palpation Neuro General: patient oriented x3 Extrem General: No pedal edema Psych Appearance: grossly normal Affect: normal affect Results AMB Urinalysis, Automated UA Leukoctes 0 Kamaljit/uL Last Edit by SERENA Landaverde on 11/16/23 15:02 UA Nitrite Negative Last Edit by Johnna Noe [facility] on 11/16/23 15:02 UA Urobilinogen 0.2 mg/dL Last Edit by Johnna Noe [facility] on 11/16/23 15:02 UA Protein 0 mg/dL Last Edit by Johnna Noe [facility] on 11/16/23 15:02 UA pH 5.0 Last Edit by Johnna Noe [facility] on 11/16/23 15:02 UA Blood 0 Sony/uL Last Edit by Johnna oNe [facility] on 11/16/23 15:02 UA Specific [place] 1.025 Last Edit by Johnna Noe [facility] on 11/16/23 15:02 UA Ketone Negative [facility] 11/16/23 15:02 UA Bilirubin 0 mg/dL Last Edit by Johnna Noe [facility] on 11/16/23 15:02 UA Glucose 0 mg/dL Last Edit by Johnna Noe [facility] on 11/16/23 15:02 Results Reviewed Results Reviewed: Laboratory Last Values Urine pH (Auto) 5.0 11/16/23 15:01 Specific [place] (Auto) 1.025 11/16/23 15:01 Urine Protein (Auto) 0 mg/dL 11/16/23 15:01 Glucose (UA)(Auto) 0 mg/dL 11/16/23 15:01 Urine Ketones (Auto) Negative 11/16/23 15:01 Urine Blood (Auto) 0 Sony/uL 11/16/23 15:01 Urine Nitrite (Auto) Negative 11/16/23 15:01 Urine Bilirubin (Auto) 0 mg/dL 11/16/23 15:01 Urine Urobilinogen (Auto) 0.2 mg/dL 11/16/23 15:01 Leukocyte Esterase (Auto) 0 Kamaljit/uL 11/16/23 15:01 Assessment & Plan Assessment & Plan (1) Urinary urgency: Code(s): R39.15 - Urgency of urination Category: Medical (2) BPH loc w urin obs/LUTS: Code(s): N40.1 - Benign prostatic hyperplasia with lower urinary tract symptoms Category: Medical Plan US retroperitoneum Orders: Orders AMB Urinalysis Automated 11/16/23 Z13.9 - Encounter for screening, unspecified Coding Level of Care Code New Pt Level 3 (45380) Diagnoses Urinary urgency R39.15 BPH loc w urin obs/LUTS N40.1
== END 2023-11-16 15:46 | disposition home or self-care (01) ==
PROVIDERS: PCP Nurse Practitioner Family; Visit Provider Urology
DX: N40.1 Benign prostatic hyperplasia with lower urinary tract symptoms (principal); R39.15 Urgency of urination
CPT/HCPCS: 99203

== ENCOUNTER → 2023-11-16 14:44 | Outpatient (BNVA) | payer BC, SELFPAY | PROVIDERS: PCP Nurse Practitioner Family; Visit Provider Urology | DX: N40.1 Benign prostatic hyperplasia with lower urinary tract symptoms (principal); N13.8 Other obstructive and reflux uropathy; R39.15 Urgency of urination | CPT/HCPCS: 81003 ==

== ENCOUNTER 2024-01-26 09:40 | Outpatient (REF) | payer BC, SELFPAY ==
--- NOTE | ~2024-01-26 | US_ITS ---
EXAMINATION: US RETROPERITONEAL COMPLETE (RENAL) CLINICAL INFORMATION: Retention of urine, unspecified. Please measure prostate. COMPARISON: CT abdomen and pelvis 04/30/2022. Ultrasound abdomen complete 07/01/2021. TECHNIQUE: Real-time imaging of the kidneys and bladder. FINDINGS: RIGHT KIDNEY: 12.0 x 4.6 x 5.0 cm (SAG x AP x TRV). The kidney is normal in size, contour, and echogenicity. Renal cortical thickness is normal. A 3 mm echogenic focus seen in the upper pole without twinkle artifact or shadowing could represent a nonobstructing calculus. A benign 0.5 cm upper pole Bosniak class I renal cyst is noted which requires no additional imaging or follow up. No solid renal masses are seen. No hydronephrosis. LEFT KIDNEY: 11.5 x 6.1 x 4.7 cm (SAG x AP x TRV). The kidney is normal in size, contour, and echogenicity. Renal cortical thickness is normal. No calculi or focal parenchymal lesions. No hydronephrosis. BLADDER: Well distended and normal. Bilateral ureteral jets are demonstrated. Prevoid bladder volume is 168 mL. Postvoid bladder volume is 12.1 mL. Prostate volume 42.1 mL. Calcifications are seen in the prostate. US/US retroperitoneal comp IMPRESSION: 1. Mild BPH with 42.1 mL prostate. 2. Question of 3 mm nonobstructing right upper pole renal calculus. Electronically signed by: Stanton Alas MD 03/31/2024 09:55 AM EST
== END 2024-01-26 09:41 | disposition home or self-care (01) ==
LOC: HO.US 09:40
PROVIDERS: PCP Nurse Practitioner Family; Visit Provider Urology
DX: R33.9 Retention of urine, unspecified (principal); R39.15 Urgency of urination
CPT/HCPCS: 76770

== ENCOUNTER 2024-02-08 09:32 | Outpatient (AMB) | payer BC, SELFPAY ==
--- NOTE | 2024-02-08 09:29 | MHC.OFFVIS ---
Intake Visit Reasons: 3m/US Intake Note: Patient is present for /US Urology Medication:NONE Antibiotic Allergy:NONE Blood Thinner:NONE Custom Ski Maker Required: No Allergies No Known Allergies Allergy (Verified 02/08/24 09:29) HPI Comments Details: 02/08/24--Telehealth fu. Dejon was initially evaluated 11/16/23--Dejon is a 63-year-old male who complaints of weak stream. He states he feels that he is not emptying completely when he urinates. He denies dysuria. Review of labs PSA-09/04/2023 is 1.32 ng/mL. I discussed renal US-01/26/24. He declines medication, will monitor voiding follow-up in 9 months Renal US - 01/26/24--images reviewed, kidneys within normal limits, official academic services professional pending [facility] Medical History Hyperlipidemia Hx of traumatic subdural hematoma Gynecomastia Surgical History S/P lumpectomy, right breast (08/28/21) History of breast lump/mass excision Status post emergency tracheotomy for assistance in breathing Family History Father No problems noted. Mother HTN (hypertension) Social History Housing: House Patient Tobacco Use Status: Never used Tobacco e-Cigarette/Vaping Use: Never Used Second Hand Smoke Exposure: No service: Yes Current occupational status: employed Current occupation: [employer] Current occupational exposures/hazards: No Cognitive needs: No Hearing needs: No Vision needs: No Review of Systems Const All systems reviewed & are unremarkable except as noted in HPI and below and Unobtainable due to mental status Reports no additional complaints Eyes Reports no additional complaints ENT Reports no additional complaints Card Reports no additional complaints Resp Reports no additional complaints GI Reports no additional complaints Reports as per HPI Musc Reports no additional complaints Skin/Breast Reports system reviewed and no additional complaints, except as documented Neuro Reports no additional complaints Psych Reports no additional complaints Endo Reports no additional complaints Dimitris/Lymph Reports no additional complaints Aller/Immun Reports no additional complaints Telehealth Telehealth [facility]health [facility] Location of provider rendering services: practice address Location of patient: address on file Patient Identification confirmed using: Name, : Yes Telehealth method: video Patient verbally consented to treatment: Yes Patient verbally consented to billing insurance company: Yes Patient informed of any privacy concerns related to visit: Yes Results Reviewed Results Reviewed: Renal US - 01/26/24--images reviewed, kidneys within normal limits, official academic services professional pending Assessment & Plan Assessment & Plan (1) Urinary urgency: Code(s): R39.15 - Urgency of urination Category: Medical (2) BPH loc w urin obs/LUTS: Code(s): N40.1 - Benign prostatic hyperplasia with lower urinary tract symptoms Category: Medical Plan Does not want to start medication, will monitor voiding. Follow-up in 9 months Patient Instructions: The patient had an opportunity to ask questions regarding treatment plan. The patient expressed understanding and agreement with the above treatment plan. The patient is aware they should contact our office by phone for worsening of their current condition or the appearance of new symptoms. Compliance is encouraged with any medications and followup testing that is ordered. It is a privilege to be allowed the opportunity to participate in the urologic care of your patient. If you have any questions or concerns regarding treatment for the above conditions please do not hesitate to contact me. The office telephone contact is [phone]. This note is constructed in part using voice recognition software. While every effort has been made to ensure accuracy academic services professional errors may have been included. Yours sincerely, Krissy Interiano MD Coding Level of Care Code Tele Est Pt Level 3 (33205) Diagnoses Urinary urgency R39.15 BPH loc w urin obs/LUTS N40.1
== END 2024-02-08 11:08 | disposition home or self-care (01) ==
LOC: HO.HUSH 09:32
PROVIDERS: PCP Nurse Practitioner Family; Visit Provider Urology
DX: N40.1 Benign prostatic hyperplasia with lower urinary tract symptoms (principal); R39.15 Urgency of urination
CPT/HCPCS: 99213

== ENCOUNTER → 2024-02-08 09:32 | Outpatient (BNVA) | payer BC, SELFPAY | PROVIDERS: PCP Nurse Practitioner Family; Visit Provider Urology ==

== ENCOUNTER 2024-09-27 07:16 | Outpatient (REF) | payer BC, SELFPAY ==
--- OUTSIDE RECORDS SUMMARY | 2024-09-27 07:19 | XMS_ITS | Patient Health Record ---
Author Organization [facility] Address [address] [place] [address] Care Team Providers Care Dermatopathologist Name Role Phone Atilio Samuel MD Primary Care Provider Joaquin Graves Unavailable [phone] Reason For Referral No Information Medications Medication SIG (Take, Route, Fr equency, Duration) Notes Start Date End Date Status Simvastatin 20 MG TAKE 1 TABLET BY SHAI TH EVERY DAY Oral for 60 Active MoviPrep 100 GM as directed Orally a s directed for 1 dose 08/02/2014 Active Problems Problem Type SNOMED Code ICD Code Onset Dates Problem Status W/U Status Risk Notes Problem Pre-surgery evaluation (299517400) Other specified pre-operative examination (V72.83) Active confirmed Problem Screening for colon cancer (254526424) Screening for colon cancer (V76.51) Active confirmed Plan Of Treatment Future Test Test Name Order Date COLONOSCOPY 08/01/2014 Insurance Providers Payer Name Payer Address Payer Phone Subscriber Number Group Number Insured Name Patient Relationship to Insured Coverage Start Date Coverage End Date [facility] [employer] [address] [place] [address] [phone] [id number]IE Self - patient is the insured Medical (General) History Medical History History ICD Code Denies [place],DM,CVA,Lung disease,renal dise ase Elevated cholesterol Surgical History Surgery Date(Month/Year) basal cell cancer removal 2013 tracheostomy at age 5 1966 subdural hematoma 1976
[2024-09-27 07:35] LABS: MANUAL DIFF FLAG NO
[2024-09-27 07:47] LABS: Basophils Absolute Auto 0.1 X10*3/uL (0.0-0.2); Basophils Percent Auto 0.6 % (0-2); Eosinophils Absolute Auto 0.1 X10*3/uL (0.0-0.4); Eosinophils Percent Auto 1.4 % (0-4); Hematocrit 47.2 % (42.0-52.0); Hemoglobin 15.6 g/dl (14.0-18.0); Imm Gran Abs Auto 0.02 X10*3/uL (0.00-0.03); Imm Gran Pct Auto 0.3 % (0.0-0.4); Lymphocytes Percent Auto 37.9 % (20-40); Mean Corpuscular HGB Conc 33.1 g/dl (31.0-36.0); Mean Corpuscular Hemoglobin 28.7 pg (27.0-33.0); Mean Corpuscular Volume 86.9 fL (80.0-98.0); Mean Platelet Volume 10.7 fL (9.4-12.4); Monocytes Absolute Auto 0.8 X10*3/uL (0.1-1.2); Monocytes Percent Auto 10.1 % (2-11); Neutrophils Absolute Auto 3.9 x10*3/uL (2.0-8.3); Neutrophils Percent Auto 49.7 % (45-73); Platelet Count 215 X10*3/uL (160-400); Red Blood Count 5.43 X10*6/uL (4.60-5.80); Red Cell Distribution Width 13.1 % (11.0-16.0); White Blood Count 7.8 X10*3/uL (4.8-10.8)
[2024-09-27 08:23] LABS: Alanine Aminotransferase 28 U/L (0-40); Albumin Level 4.7 g/dL (3.5-5.0); Alkaline Phosphatase 87 U/L (39-117); Anion Gap 12 (12-20); Aspartate Amino Transferase 26 U/L (5-37); Bilirubin Total 0.6 mg/dL (0.0-1.0); Blood Urea Nitrogen 21 mg/dL (9-16); Calcium 9.8 mg/dL (8.4-10.2); Carbon Dioxide 32 mmol/L (22-29); Chloride 103 mmol/L (96-108); Cholesterol 137 mg/dL (<200); Estimated Glomerular Filt Rate > 60; Glucose Fasting 114 mg/dL (60-99); HDL Cholesterol 27 mg/dL (>40); LDL Cholesterol Calculated 89 mg/dL (<100); Potassium 4.5 mmol/L (3.3-5.1); Sodium 142 mmol/L (135-145); Total Protein 7.3 g/dL (6.5-8.0); Triglycerides 109 mg/dL (<150)
[2024-09-27 08:24] LABS: Appearance Urine Clear; Color Urine Yellow; Glucose Urine UA Negative (Negative); Leukocyte Esterase Urine Negative (Negative); Nitrite Urine Negative (Negative); Specific Gravity - Urine 1.015 (1.005-1.025); Urine Blood Negative (Negative); Urine Ketones Negative (Negative); Urine Protein Negative (Neg-Trace)
[2024-09-27 08:34] LABS: Prostate Specific Antigen Scr 1.97 ng/mL (<0.05-4.0)
[2024-09-27 08:41] LABS: TSH reflex Free T4 1.38 uIU/mL (0.32-4.0); Vitamin D 25-OH Total 44.9 ng/mL (>30)
== END 2024-09-27 07:17 | disposition home or self-care (01) ==
LOC: HO.LAB 07:16
PROVIDERS: PCP Nurse Practitioner Family; Visit Provider Nurse Practitioner Family
DX: Z12.5 Encounter for screening for malignant neoplasm of prostate (principal); I10 Essential (primary) hypertension; E55.9 Vitamin D deficiency, unspecified
CPT/HCPCS: 36415; 80053; 80061; 81003; 82306; 84153; 84443; 85025

== ENCOUNTER 2024-10-05 14:41 | Outpatient (AMB) | payer BC, SELFPAY ==
[2024-10-05 14:52] VITALS: BP 120/72; PULSE 69; O2SAT 97; BMI 25.4
--- NOTE | 2024-10-05 14:52 | MHC.PC.OV ---
Vital Signs 10/05/24 14:52 Height 5 ft 8 in Weight 167 lb BMI 25.4 BP 120/72 Blood Pressure Location Lt brachial Position Sitting Pulse 69 Pulse Source Pulse Oximeter Pulse Oximetry (%) 97 Oxygen Delivery Method Room Air Intake Visit Reasons: ANNUAL Allergies No Known Allergies Allergy (Verified 10/05/24 14:52) Tobacco use date assessed: 10/05/24 Dental Screening Dental Screen Date: 10/05/24 Did you have a dental visit in the last 12 months?: Yes Did you have a dental problem in the last 6 months where you did not have access to dental care?: No Was dental information given to patient?: Patient has dentist HPI ANNUAL HPI Details History of Present Illness The patient is a 64-year-old male presenting for a physical scan and preventative care. He denies experiencing chest pain, dyspnea, abdominal pain, constipation, diarrhea, nausea, or vomiting. He reported a single episode of hematochezia, which has since resolved. The patient is due for a colon cancer screening, which will be scheduled in the next couple of months. He regularly consults with a nutrition faculty member and a urologist. Dermatological examination revealed seborrheic keratosis throughout the upper torso, particularly on the back, and a lesion on the right eyelid. Hx of mild left hip arthritis. Last XR was a few years ago, want to repeat this and refer to PT. Pt remains fairly active Health Maintenance - Colon cancer screening scheduled in the next couple of months Social History Review of Systems - Gastrointestinal: Denies abdominal pain, constipation, diarrhea, nausea, vomiting; Reports a single episode of hematochezia - Cardiovascular: Denies chest pain - Respiratory: Denies dyspnea -denies any n/v, fevers, chills Physical Exam General: Cooperative, healthy appearing, comfortable, no acute distress and well developed Orientation: Patient oriented x3 Limitations: No limitations Head: Normal to inspection Ears: Hearing grossly normal bilaterally Nose: Normal external nose present Face and sinus: Normal facial exam Eyes: Appearance normal, both eyes and all related structures, except for a lesion (flat, slightly raised) on the right eyelid Neck: Normal visual inspection and Yes full ROM Respiratory: Normal respiratory effort and able to speak in complete sentences. Clear to auscultation bilaterally Cardiovascular: Regular rate and rhythm. Normal S1 and S2 GI: Normal to inspection. Soft to palpation and nontender, small umbilical hernia noted : Testicles without masses/? small left inguinal hernia, no pain with palpation Skin: Seborrheic keratosis throughout the upper torso, especially the back Neuro: Patient oriented x3 Extremities: Normal to inspection Results Plan The patient will be referred for a repeat colon cancer screening, which is due in the next couple of months. Regular follow-ups with a nutrition faculty member and a urologist will continue as part of his ongoing care. Discussion Notes I discussed with the patient the importance of scheduling his colon cancer screening, which is due soon, and emphasized the need for regular follow-ups with his nutrition faculty member and urologist. Patient Instructions - Schedule your colon cancer screening in the next couple of months. - Continue regular visits with your nutrition faculty member and urologist. PFSH Medical History Hyperlipidemia Hx of traumatic subdural hematoma Gynecomastia Surgical History S/P lumpectomy, right breast (08/28/21) History of breast lump/mass excision Status post emergency tracheotomy for assistance in breathing Family History Father No problems noted. Mother HTN (hypertension) Social History Housing: House Patient Tobacco Use Status: Never used Tobacco e-Cigarette/Vaping Use: Never Used Second Hand Smoke Exposure: No service: Yes Current occupational status: employed Current occupation: [employer] Current occupational exposures/hazards: No Cognitive needs: No Hearing needs: No Vision needs: No Questionnaire PHQ-9 Over the last 2 weeks, how often have you been bothered by any of the following problems? 1. Little interest or pleasure in doing things: not at all 2. Feeling down, depressed, or hopeless: not at all 3. Trouble falling or staying asleep, or sleeping too much: not at all 4. Feeling tired or having little energy: not at all 5. Poor appetite or overeating: not at all 6. Feeling bad about yourself - or that you are a failure or have let yourself or your family down: not at all 7. Trouble concentrating on things, such as reading the newspaper or watching television: not at all 8. Moving or speaking so slowly that other people could have noticed. Or the opposite - being so fidgety or restless that you have been moving around a lot more than usual: not at all 9. Thoughts that you would be better off or of hurting yourself in some way: not at all Total score: 0 Depression Screening Interpretation: Negative Depression Screening Done: Yes 24146 - PHQ-9 Billing: Yes Source: Developed by Drs. Joaquin Guzman, Sarah Mchugh, Home [employer] and colleagues, with an educational radha from [employer]. Thrive Questionnaire Date Thrive assessed: 10/05/24 I am a: Patient What is your living situation today?: I choose not to answer this question Within the past 12 months, did the food you bought not last and you didn't have the money to get more?: I choose not to answer this question Within the past 12 months, did you worry whether your food would run out before you got money to buy more?: I choose not to answer this question Do you have trouble paying for medicines?: I choose not to answer this question Do you have trouble getting transportation to medical appointments?: I choose not to answer this question Do you have trouble paying your heating and electricity bill?: I choose not to answer this question Do you have trouble taking care of your child, family member or friend?: I choose not to answer this question Do you have trouble with day-to-day activities such as bathing, preparing meals, shopping, managing finances, etc.?: I choose not to answer this question Are you currently unemployed and looking for a job?: I choose not to answer this question Are you interested in more education?: I choose not to answer this question THRIVE Score: 0 AUDIT C Alcohol Use Questionnaire (AUDIT-C) 1. How often do you have a drink containing alcohol?: Monthly or less 2. How many drinks containing alcohol do you have on a typical day when you are drinking?: 1 or 2 3. How often do you have six or more drinks on one occasion?: Never Total Score: 1 Score Reviewed/Action Taken: Yes KARINA-7 AMB Questionnaire KARINA-7 Date KARINA - 7 assessed: 10/05/24 Feeling nervous, anxious, or on edge: 0 = Not at all Not being able to stop or control worryin = Not at all Worrying too much about different things: 0 = Not at all Trouble relaxin = Not at all Being so restless that it is hard to sit still: 0 = Not at all Becoming easily annoyed or irritable: 0 = Not at all Feeling afraid as if something awful might happen: 0 = Not at all Total KARINA-7 score (0-4 normal; 5-9 mild; 10-14 moderate; 15-21 severe): 0 Source: Developed by Drs. Joaquin Guzman, Sarah Mchugh, Home [employer] and colleagues, with an educational radha from [employer]. KARINA-7 Assessment Billing KARINA-7 Assessment Tool: KARINA-7 Assessment 09861 Physical exam (Primary Care) Vital Signs: Last Vital Signs Pulse 69 10/05/24 14:52 BP 120/72 10/05/24 14:52 Pulse Ox 97 10/05/24 14:52 Oxygen Delivery Method Room Air 10/05/24 14:52 BMI result Body Mass Index 25.4 Tobacco/Smoking Status: Tobacco use Status Tobacco use date assessed 10/05/24 10/05/24 14:54 Patient Tobacco Use Status Never used Tobacco 10/05/24 14:54 e-Cigarette/Vaping Use Never Used 10/05/24 14:54 PHQ-9: PHQ-9 Score PHQ-9: Total score 0 10/05/24 14:54 Depression Screening Interpretation: Negative Thrive Assessment: Date of Thrive Assessment Date Thrive assessed 10/05/24 10/05/24 14:54 Coding Level of Care Code Est Pt Prev Care 40-64y(55554) Diagnoses Screening for colon cancer Z12.11 Left hip pain M25.552 Physical exam Z00.00 Additional Codes KARINA-7 Assessment Billing - KARINA-7 Assessment Tool: KARINA-7 Assessment 93492 ([id number]) PHQ-9 - 20450 - PHQ-9 Billing: Yes ([id number]) Assessment & Plan Assessment & Plan (1) Screening for colon cancer: Code(s): Z12.11 - Encounter for screening for malignant neoplasm of colon Category: Medical (2) Left hip pain: Code(s): M25.552 - Pain in left hip Category: Medical (3) Physical exam: Code(s): Z00.00 - Encounter for general adult medical examination without abnormal findings Category: Medical Plan . Orders: Orders PT Evaluation and Treatment Today M25.552 - Pain in left hip XR hip LT min 2V Today M25.552 - Pain in left hip Referrals Gastroenterology Referral Z12.11 - Encounter for screening for malignant neoplasm of colon
--- OUTSIDE RECORDS SUMMARY | 2024-10-05 16:53 | XMS_ITS | Patient Health Record ---
Author Organization [facility] Address [address] [place] [address] Care Team Providers Care Vault Keeper Name Role Phone Atilio Samuel MD Primary Care Provider Joaquin Graves Unavailable [phone] Reason For Referral No Information Medications Medication [...] W/U Status Risk Notes Problem Pre-surgery evaluation (608322252) Other specified pre-operative examination (V72.83) Active confirmed Problem Screening for colon cancer ([id number]) Screening for colon cancer (V76.51) Active confirmed Plan Of Treatment Future Test Test Name Order Date COLONOSCOPY 08/01/2014 Insurance Providers Payer Name Payer Address Payer Phone Subscriber Number Group Number Insured Name Patient Relationship to Insured Coverage Start Date Coverage End Date [facility] [place] [address] [place] [address] [phone] [id number] Self - patient is the insured Medical (General) History Medical History History ICD Code Denies GA,DM,CVA,Lung disease,renal dise ase Elevated cholesterol Surgical History Surgery Date(Month/Year) basal cell cancer removal 2013 tracheostomy at age 5 1966 subdural hematoma 1976
== END 2024-10-05 15:59 | disposition home or self-care (01) ==
LOC: HO.HMCC 14:41
PROVIDERS: PCP Nurse Practitioner Family; Visit Provider Nurse Practitioner Family
DX: Z12.11 Encounter for screening for malignant neoplasm of colon (principal); M25.552 Pain in left hip; Z00.00 Encounter for general adult medical examination without abnormal findings

== ENCOUNTER → 2024-10-05 14:41 | Outpatient (BNVA) | payer BC, SELFPAY | PROVIDERS: PCP Nurse Practitioner Family; Visit Provider Nurse Practitioner Family | DX: Z00.00 Encounter for general adult medical examination without abnormal findings (principal); L82.1 Other seborrheic keratosis; M16.12 Unilateral primary osteoarthritis, left hip | CPT/HCPCS: 96127 ==

== ENCOUNTER 2024-11-21 08:57 | Outpatient (RCR) | payer BC, SELFPAY ==
--- NOTE | 2024-11-21 16:29 | MHC.PT.EP ---
[facility] [place] [facility] [place] [facility] [place] Office [address] Rupinder Joyner [address] [phone] F: [phone] F: [phone] F: [phone] F: [phone] Physical Therapy Plan of Care Date of Evaluation: 11/21/24 Date of Surgery: Diagnosis: L hip pain. Assessment: pt is a 64 y/o male referred to physical therapy eval and treat of L hip pain which is limiting his ability to cross his L LE, dress and tie his L shoe, standing and walking for long duration secondary to decreased L hip ROM, decreased B hip strength, increased B LE tissue tension, mild pelvic asymmetry and pain. Pt is deemed an appropriate candidate to receive skilled PT services to address their physical impairments in order to improve their functional ability. Frequency and Duration: The patient will be seen 1x/wk for 5 wks Short Term Goals: pt will initiate HEP. Halfway Goals: pt will be I w/ HEP. pt will improve B hip ABD MMT by +/5 grade. Pt will be able to dress L foot w/o compensation. Pt will improve L quad tightness by demonstrating improved heel to glute in prone. Pt will improve L hip abd strength by at least 1/2 MMT grade. Treatment Plan: Modalities to reduce pain, spasms and effusion. Manual therapy to restore motion and function. Therapeutic exercise to improve strength and flexibility. Neuromuscular re-education for posture and balance. Therapeutic activities to return to functional activities of daily living. Electronically signed by: Christiano Purdy PT. Please sign and return to therapist. Thank you for your referral.
--- NOTE | 2024-12-05 17:27 | MHC.PT.DC ---
[facility] [place] Office [place] Office [place] Office [address] Rupinder Joyner [address] [phone] F: [phone] F: [phone] F: [phone] F: [phone] Physical Therapy Discharge Report Diagnosis: L hip pain. Date of Surgery: Date of Evaluation: 11/21/24 Date of Discharge: 12/05/24 Treatments to Date: 1 Cancellations to Date: No Shows to Date: Discharge Status: Patient Elected to Stop Discharge Summary: . Electronically signed by: Christiano Purdy PT . Please sign and return to therapist. Thank you for your referral.
== END 2024-12-05 17:26 | disposition home or self-care (01) ==
LOC: HO.PT 08:57
PROVIDERS: PCP Nurse Practitioner Family; Visit Provider Nurse Practitioner Family
DX: M25.552 Pain in left hip (principal)
CPT/HCPCS: 97110; 97161

== ENCOUNTER 2025-04-03 09:35 | Outpatient (AMB) | payer BC, SELFPAY ==
--- NOTE | 2025-04-03 09:36 | A.OFFVIS_ITS ---
Vital Signs 04/03/25 09:37 Height 5 ft 8 in Weight 174 lb 9.698 oz BMI 26.5 BP 140/82 H Blood Pressure Location Rt brachial Position Sitting Pulse 74 Pulse Source Monitor Intake Visit Reasons: preop/colonoscopy 04/26 Allergies No Known Allergies Allergy (Verified 04/03/25 09:40) Medication List - Last Reconciled 04/03/25 by Karely Bailey, ED-C rosuvastatin 10 mg PO BEDTIME 90 days HPI HPI preop/colonoscopy 04/26: Details: The patient is a 64 year old male presenting for preoperative cardiovascular clearance for an upcoming colonoscopy. He has a history of heart palpitations, which led to a cardiology evaluation over two years ago with Dr. York. At that time, he experienced a fluttering sensation in his chest. A workup at that time included a Holter monitor which showed premature atrial contractions (PACs), a normal echocardiogram, and an exercise stress test which showed good functional capacity with no symptoms or EKG changes. He reports he has not experienced palpitations recently. His past medical history is also significant for hyperlipidemia, for which he takes rosuvastatin. The patient reports being physically active, including walking his dogs a couple of miles daily, hiking, riding his bike, and using light weights. He denies any chest pain, pressure, tightness, wheezing, lightheadedness, or dizziness with exertion. He also denies any swelling in his legs. He reports having a cold-like illness over the last few days with headache and body aches, from which he is now recovering. He had a few cups of coffee before this visit today which he feels correlates to his mildy elevated BP reading. [facility] Medical History Hyperlipidemia Hx of traumatic subdural hematoma Gynecomastia Surgical History S/P lumpectomy, right breast (08/28/21) History of breast lump/mass excision Status post emergency tracheotomy for assistance in breathing Family History Father No problems noted. Mother HTN (hypertension) Social History Housing: House Patient Tobacco Use Status: Never used Tobacco e-Cigarette/Vaping Use: Never Used Second Hand Smoke Exposure: No service: Yes Current occupational status: employed Current occupation: [employer] Current occupational exposures/hazards: No Cognitive needs: No Hearing needs: No Vision needs: No Review of Systems Const All systems reviewed & are unremarkable except as noted in HPI and below ENT Denies dizziness Card Denies chest pain, Denies chest pain at rest, Denies chest pain with activity, Denies rapid heart rate, Denies pedal edema, Denies edema, Denies leg edema, Denies lightheadedness, Denies palpitations, Denies dyspnea, Denies dyspnea on exertion and Denies orthopnea Resp Denies cough, Denies dyspnea and Denies dyspnea on exertion GI Denies hematochezia and Denies change in stool character Musc Denies abnormal gait, Denies limited range of motion, Denies muscle cramps, Denies muscle weakness, Denies numbness, Denies radiating pain into limb, Denies stiffness and Denies tingling Neuro Denies abnormal gait, Denies dizziness, Denies numbness and Denies tingling Endo Denies palpitations Physical Exam Vital Signs: Last Vital Signs Pulse 74 04/03/25 09:37 BP 140/82 H 04/03/25 09:37 BMI result Body Mass Index 26.5 Const General: cooperative, healthy appearing, comfortable and no acute distress Orientation/consciousness: patient oriented x3 Neck Neck: Yes normal visual inspection Resp Effort & Inspection: normal respiratory effort Auscultation: clear to auscultation bilaterally, no crackles, no rales, no rhonchi and no wheezes Cardio Rate: regular rate Rhythm: regular rhythm Heart sounds: S1 normal heart sound present, S2 normal heart sound present, no gallops, no murmurs and no rubs Neuro General: patient oriented x3 Extrem General: Yes normal to inspection, No no pedal edema and No calf tenderness Psych Appearance: grossly normal Mental Status: mental status grossly normal Speech and movement: Normal speech and movement present Office Procedures EKG Details: Today, read by me, normal sinus rhythm, rate 74, QTC 415 milliseconds [id number], Complete Assessment & Plan Assessment & Plan (1) PAC (premature atrial contraction): Code(s): I49.1 - Atrial premature depolarization Category: Medical Plan: Notes indicate that prior Holter monitor had shown PACs. He has not been having any bothersome heart palpitations. He is not on any rate slowing agents. EKG today showing normal sinus rhythm, rate 74. Instructed to call if he is having recurrent heart fluttering or concerning palpitations. (2) HTN (hypertension): Code(s): I10 - Essential (primary) hypertension Category: Medical Plan: Blood pressure goal less than 130/80. Mildly elevated today. Instructed to periodically monitor at home, limit caffeine intake. Continue exercise as tolerated. (3) Preop cardiovascular exam: Code(s): Z01.810 - Encounter for preprocedural cardiovascular examination Category: Medical Plan: Preop for colonoscopy. He is low cardiac risk and may proceed. Call/consult Cardiology if needed Plan I informed the patient that he is at low cardiac risk for his upcoming colonoscopy, given his regular exercise habits and lack of concerning symptoms. We discussed his history of premature atrial contractions (PACs), and I explained that infrequent PACs are common and generally not a concern. I educated him that a very high burden of PACs can increase the risk of developing atrial fibrillation and advised him to be mindful of any recurrent fluttering sensations. I also advised him to watch for any new symptoms during exercise, such as chest heaviness, squeezing, or pressure, and to recognize these as abnormal. We noted his blood pressure was slightly elevated today, likely due to his recent illness and coffee intake. I recommended that he follow up with our office on an as- needed basis for any new cardiac questions or concerns. Patient Instructions: - You are cleared for your upcoming colonoscopy from a heart standpoint. - Continue taking your rosuvastatin for cholesterol. - It is normal to have an occasional skipped heartbeat. However, if you experience a frequent fluttering feeling in your chest again, please let a doctor know. - Pay attention to any new chest pain, pressure, or significant shortness of breath when you are exercising, as these are not normal symptoms and should be checked out. - You do not need a routine follow-up with our office at this time. Please call us to make an appointment if you have any new heart-related concerns or questions. Patient was informed and verbally consented to the use of an ambient scribe for clinic note documentation during this visit. Visit time spent on chart review, interview, assessment, orders, documentation. Coding Level of Care Code Est Pt Level 3 (98499) Add On Problem Visit Only Diagnoses PAC (premature atrial contraction) I49.1 HTN (hypertension) I10 Preop cardiovascular exam Z01.810 CPT Codes EKG - CPT: 49494-[id number], Complete ([id number])
[2025-04-03 09:37] VITALS: BP 140/82; PULSE 74; BMI 26.5
== END 2025-04-03 10:05 | disposition home or self-care (01) ==
LOC: HO.HCS 09:35
PROVIDERS: PCP Nurse Practitioner Family; Visit Provider Nurse Practitioner Family
DX: I49.1 Atrial premature depolarization (principal); I10 Essential (primary) hypertension; Z01.810 Encounter for preprocedural cardiovascular examination
CPT/HCPCS: 93010; 99213

== ENCOUNTER → 2025-04-03 09:35 | Outpatient (BNVA) | payer BC, SELFPAY | PROVIDERS: Visit Provider Nurse Practitioner Family | DX: Z01.810 Encounter for preprocedural cardiovascular examination (principal); I10 Essential (primary) hypertension; I49.1 Atrial premature depolarization; Z79.899 Other long term (current) drug therapy | CPT/HCPCS: 93005 ==